=== PATIENT | male | born 1995 | race Caucasian/White ===

== ENCOUNTER 2020-07-29 12:38 | Emergency (ER) | payer SELFPAY ==
[2020-07-29 12:49] VITALS: BP 156/80; PULSE 83; RESP 16; TEMP 36.9; O2SAT 99
--- NOTE | 2020-07-29 13:01 | ED.BACK ---
HPI - Back Pain/Injury General Chief Complaint: Back Pain/Injury Stated Complaint: back pain Time Seen by Provider: 07/29/20 12:55 Source: patient Mode of arrival: ambulatory Limitations: no limitations History of Present Illness HPI Narrative: Brandon Swartz is a 25 yo male with no PMH with thoracic and low back pain x 1 week. Rates pain as 4/10 with some tingling into R upper leg, no bowel or urinary issues Related Data Allergies Allergy/AdvReac Type Severity Reaction Status Date / Time No Known Allergies Allergy Verified 07/29/20 12:55 Review of Systems Review of Systems: Narrative: CONSTITUTIONAL: Denies fever, chills, sweats. EYES: Denies visual changes, redness, discharge. ENT: Denies rhinorrhea, congestion, sore throat, otalgia. CARDIOVASCULAR: Denies chest pain, palpitations, edema. RESPIRATORY: Denies dyspnea, wheezing, cough GASTROINTESTINAL: Denies abdominal pain, nausea, vomiting, diarrhea. GENITOURINARY: Denies dysuria, hematuria, abnormal discharge SKIN: Denies rash or itching. NEUROLOGIC: Denies numbness, or focal weakness. PSYCHIATRIC: Denies anxiety or depression. Mid lower back pain and tingling to right upper leg PMFSH Past Medical History Medical History (Updated 07/29/20 @ 13:06 by Janis Rosen CNP) No acute medical problems Family History Family History Mother Hypertension Social History Social History Smoking status: Never smoker Alcohol intake: current Gender identity (if verbalized by the patient): Male Comments At time of signature, I agree with nursing past medical, surgical, social and family history. There is no relevant family history pertinent to the presenting complaint. BP elevated due to pain, follow-up with PCP Exam Narrative: Exam Narrative: GENERAL: This is a well-nourished, well-developed patient, in mild distress. HEAD: normocephalic, atraumatic. EYES: Sclera clear/white. Vision is grossly intact. EARS: External ears normal. Hearing grossly intact. NOSE: External nose normal without nasal discharge, nares without redness, no rhinorrhea. THROAT: Mucous membranes moist, NECK: Neck supple, CARDIOVASCULAR: Regular rate and rhythm without murmurs, gallops, or rubs. RESPIRATORY: Clear to auscultation. Breath sounds equal bilaterally. No wheezes, rales, or rhonchi. GASTROINTESTINAL: Abdomen soft, SKIN: warm, intact with no suspicious lesions or rash, good texture and turgor. NEURO: awake, alert, and oriented to person, place and time. There were no obvious focal neurologic abnormalities. Steady gait EXTREMITIES: Normal range of motion. BACK: pain in thoracic spine ecchymosis down the to lumbar area, mild tenderness, has scoliosis, no other deformity Course Course Emergency Course: Mid to low back pain times a week Discussed with patient use of muscle relaxants and as a inflammatories and weight limit at work; if not improved over the next few days should follow-up for x-rays Follow-up with PCP Vital Signs Vital signs: Vital Signs Temperature 98.5 F 07/29/20 12:49 Pulse Rate 83 07/29/20 12:49 Respiratory Rate 16 07/29/20 12:49 Blood Pressure 156/80 H 07/29/20 12:49 Pulse Oximetry 99 07/29/20 12:49 Temperature 98.5 F 07/29/20 12:49 Pulse Rate 83 07/29/20 12:49 Respiratory Rate 16 07/29/20 12:49 Blood Pressure 156/80 H 07/29/20 12:49 Pulse Oximetry 99 07/29/20 12:49 MDM - Back Pain/Injury Differential Diagnosis Differential diagnosis: Likely lumbar radiculopathy, sciatica, strain of lumbar region, thoracic back pain and other Discharge Plan Discharge Clinical Impression: Sciatica Qualifiers: Laterality: right Qualified Code(s): M54.31 - Sciatica, right side Patient Disposition: Home, Self-Care Condition: Stable Instructions: Sciatica (ED) Additional Instructions: Do not lift heavy weight, take a
== END 2020-07-29 13:10 | disposition home or self-care (01) ==
PROVIDERS: Emergency Provider Nurse Practitioner
DX: M54.31 Sciatica, right side (principal)
CPT/HCPCS: 99213; G0463